=== PATIENT | female | born 1985 | race Caucasian/White ===

== ENCOUNTER → 2017-12-10 18:01 | Outpatient (REF) | payer OTHER, SELFPAY ==
[2017-12-13 06:05] LABS: Neisseria gonorrhoeae, NAA Negative (Negative)
== END ==
LOC: LAB 18:01
PROVIDERS: PCP Family Medicine; Visit Provider Nurse Practitioner Obstetrics & Gynecology
DX: Z72.51 High risk heterosexual behavior (principal)
CPT/HCPCS: 87491; 87591

== ENCOUNTER → 2019-04-28 10:37 | Outpatient (CLI) | payer BC, SELFPAY ==
--- NOTE | 2019-04-28 10:42 | XR_ITS ---
PROCEDURE: XR CHEST 2V CLINICAL HISTORY: BRONCHITIS Pneumonia, shortness of COMPARISON: No exams were available for comparison FINDINGS: The cardiomediastinal silhouette and pulmonary vascularity are within normal limits. The lungs are clear without infiltrates, suspicious nodules, or pleural effusions. Calcified granuloma is lobe. No acute bony abnormalities. IMPRESSION: No acute findings. Dictated by: Da Nguyen MD 04/28/2019 13:22 Electronically signed by Da Nguyen MD in [facility] 04/28/2019 13:22
== END ==
PROVIDERS: PCP Nurse Practitioner Family; Visit Provider Nurse Practitioner Family
DX: J40 Bronchitis, not specified as acute or chronic (principal)
CPT/HCPCS: 71046

== ENCOUNTER → 2020-10-11 16:23 | Outpatient (CLI) | payer BC, SELFPAY ==
--- NOTE | 2020-10-11 16:26 | MM_ITS ---
PROCEDURE: MM DIG SCREENING MAMM BI W/CAD Digital Breast Tomosynthesis Included CLINICAL INDICATION: Family Hx of Breast Cancer, Baseline Screening Rachel COMPARISON: No exams were available for comparison TECHNIQUE: Standard CC and MLO images and 3D Tomosynthesis was obtained. R2 CAD reviewed. FINDINGS: The breasts are extremely dense, decreases the sensitivity of mammography. There are multiple ill distinct nodular appearing densities noted in the breasts bilaterally, largest in right upper outer quadrant measuring up to 3 centimeters. No suspicious calcifications or architectural distortion. IMPRESSION: Nodular appearing densities in bilateral breasts. BI-RAD Category: 0 Need Additional Imaging Evaluation FOLLOW-UP: Ultrasound of both breasts. (A letter has been sent to the patient regarding results of the study.) Dictated by: Carrie Keenan 10/13/2020 08:51 Carrie Keenan in [facility] 10/13/2020 08:51
== END ==
PROVIDERS: PCP Family Medicine; Visit Provider Nurse Practitioner Obstetrics & Gynecology
DX: Z12.31 Encounter for screening mammogram for malignant neoplasm of breast (principal); Z80.3 Family history of malignant neoplasm of breast
CPT/HCPCS: 77063; 77067

== ENCOUNTER → 2020-10-25 15:08 | Outpatient (CLI) | payer BC, SELFPAY ==
--- NOTE | 2020-10-25 15:09 | US_ITS ---
PROCEDURE: US BREAST RT COMPLETE CLINICAL INDICATION: abnormal xmg Follow-up abnormal mammogram COMPARISON: MG MM DIG SCREENING MAMM BI W/CAD from 10/11/2020 FINDINGS: There are numerous complicated cyst. 1 cm complicated cyst at 12 o'clock 5 mm cyst at 1 o'clock near the nipple 9 x 8 x 3 mm cyst at 4 o'clock near the nipple Seven by 3 by 5 mm complicated cyst at 9 o'clock 5 mm x 3 mm cyst at 9 o'clock mid 6 x 5 mm complicated cyst 10 o'clock mid 6 mm complicated cyst at 10 o'clock outer 2.4 x 2.6 x 1.2 cm complicated cyst 10 o'clock outer. No solid suspicious nodules apparent. IMPRESSION: BI-RADS category 3 probably benign. Recommend six-month mammographic and sonographic follow-up to confirm baseline Dictated by: Da Nguyen MD 11/02/2020 08:12 Da Nguyen MD in [facility] 11/02/2020 08:12
--- NOTE | 2020-10-25 15:09 | US_ITS ---
PROCEDURE: US BREAST LT COMPLETE CLINICAL INDICATION: abnormal xmg COMPARISON: MG MM DIG SCREENING MAMM BI W/CAD from 10/11/2020 FINDINGS: There are numerous complicated cyst. 12 o'clock 7 x 6 mm complicated cyst. Outer. At 3 o'clock there is an 8 mm cyst, 7 mm complicated cyst, and 5 mm cyst outer aspect Nine by 7 mm complicated cyst 4 o'clock outer 10 x 7 mm cyst 5 o'clock near the nipple 3 mm cyst 9 o'clock near the nipple Six by 5 x 6 mm complicated cyst 10 o'clock near the nipple 7 x 4 mm complicated cyst at 10 o'clock mid 6 mm cyst 11 o'clock near the nipple 8 mm by 8 mm by 13 mm cyst 10 o'clock mid No malignant appearing mass IMPRESSION: Numerous benign-appearing and complicated cysts. Probably benign. BI-RADS category 3 probably benign Recommend six-month mammographic and sonographic follow-up to confirm baseline Dictated by: Da Nguyen MD 11/02/2020 08:15 Da Nguyen MD in [facility] 11/02/2020 08:15
== END ==
PROVIDERS: PCP Family Medicine; Visit Provider Nurse Practitioner Obstetrics & Gynecology
DX: R92.8 Other abnormal and inconclusive findings on diagnostic imaging of breast (principal)
CPT/HCPCS: 76641

== ENCOUNTER → 2022-03-31 16:45 | Outpatient (CLI) | payer BC, SELFPAY ==
--- NOTE | 2022-03-31 16:46 | MM_ITS ---
PROCEDURE INFORMATION: Exam: MG Bilateral Screening 3D Mammography Exam date and time: 03/31/2022 4:36 PM Age: 36 years old Clinical indication: Screening mammogram. TECHNIQUE: Imaging protocol: Bilateral Screening tomosynthesis and 2D mammography including computer-aided detection (CAD) when performed. COMPARISON: 1. MG MM DIG SCREENING MAMM BI W/CAD 10/11/2020 4:24 PM 2. US BREAST LT COMPLETE 10/25/2020 3:48 PM 3. US BREAST RT COMPLETE 10/25/2020 3:31 PM FINDINGS: MAMMOGRAPHY: Breast composition: The breast is heterogeneously dense, which may obscure small masses. Mass: None. Architectural distortion: No new or suspicious architectural distortion. Calcifications: No new or suspicious calcifications are present Asymmetric density: No new or suspicious asymmetric density is present Skin thickening: None. Axillary adenopathy: None. IMPRESSION: No mammographic evidence of malignancy. Recommend annual screening mammography unless otherwise clinically indicated. ASSESSMENT: BI-RADS category 1: Negative
== END ==
PROVIDERS: PCP Family Medicine; Visit Provider Nurse Practitioner Obstetrics & Gynecology
DX: Z12.31 Encounter for screening mammogram for malignant neoplasm of breast (principal)
CPT/HCPCS: 77063; 77067

== ENCOUNTER 2024-04-16 21:09 | Emergency (ER) | payer BC, SELFPAY ==
[2024-04-16] VITALS (9 sets, daily range): BP systolic 109–129; BP diastolic 53–84; PULSE 71–130; RESP 18; TEMP 37.2–37.6; O2SAT 95–100; BMI 25.7
--- NOTE | 2024-04-16 21:36 | ED_ITS ---
<Statement entered by Cyndi Arnett DO - 04/16/24 22:55> I was consulted by the SELINA, and we discussed the complexity of the problems being addressed. I approved the treatment and management plan for this patient's care in the emergency department, thus performing a substantive portion of the medical decision making. Cyndi Arnett DO Discharge Plan Disposition Chief Complaint: Upper Respiratory Infection Prescriptions Prescriptions: New azithromycin 250 mg tablet See Rx Instructions .ROUTE .COMPLEX Qty: 6 0RF Rx Instructions: For 250 mg dose pack: take 500 mg today (day 1), then 250 mg for 4 days (days 2-5) No Action levonorgestrel [Mirena] 20 mcg/24 hr (5 years) intrauterine device 1 insert INTRAUTERI ONCE Referrals Follow up/Referrals: Lokesh Álvarez MD [Primary Care Provider] - See instructions Activity Restrictions/Add. Instructions Additional Instructions/Restrictions: Please return to the emergency department any worsening signs or symptoms, any persistent fever, shortness of breath, chest pain that worsens or persist over the next 24 to 48 hours. Follow-up with primary care provider, continue all medications as currently prescribed, start azithromycin 500 mg first day, then 250 mg p.o. for next 4 days. Clinical Impressions Clinical Impression: Bronchitis, Pneumonia Instructions Patient Instructions: Pneumonia--Adult, DI for Acute Bronchitis Print Language Print Language: Wolof Discharge ED Provider: Cyndi Arnett General Adult HPI General Chief complaint: Upper Respiratory Infection Stated complaint: SOA, cough, franchesca Time Seen by Provider: 04/16/24 21:19 Mode of Arrival: Ambulatory Source of Information: Patient Limitations: No Limitations Description of Symptoms (Recalled from ER Triage Doc. by RN): Patient says she has been to doctor twice this week for same symptoms. Cough, headache, body aches, no energy and feels like she is having a harder time breathing than she normally does. Prescribed breathing treatments, ibuprofen 800, antibiotic and cough meds by outside provider. History of Present Illness HPI narrative: 38-year-old female presents to the emergency department for cough, myalgias, fatigue, headaches, congestion sore throat, shortness of breath, worse with deep inspiration since 04/12/2024, patient has been seen by urgent care provider as well as family physician, has been prescribed albuterol, promethazine, other antitussive, and has been on a cephalosporin antibiotic for the last couple of days, with little to no relief. Patient is also utilize [id number] cold and flu medications. Patient admits to subjective fever and chills, denies abdominal pain, nausea vomiting constipation diarrhea, denies any urinary type symptomatology, has no real relevant past medical history, is a current everyday smoker (vapes), denies alcohol or drug use. Initial triage vitals are unremarkable. Onset (ago): day(s) Related Data Home Medications ?Medication ?Instructions ?Recorded ?Confirmed levonorgestrel 21 mcg/24 hr (up to 1 insert intrauterine ONCE 12/10/17 01/01/24 8 years) 52 mg intrauterine device (Mirena) Previous Rx's ?Medication ?Instructions ?Recorded azithromycin 250 mg tablet See Rx Instructions PO .COMPLEX #6 04/16/24 tabs Allergies Allergy/AdvReac Type Severity Reaction Status Date / Time erythromycin base Allergy Mild Verified 01/01/24 15:50 [facility] Disclaimer: The information contained in this section may have been updated after the patient was seen, as this information can be updated by other users. Medical History (Updated 04/16/24 @ 22:48 by EMELI Adhikari) Anxiety Surgical History Hx of nasal septoplasty Family History Other Family history non-contributory Social History Smoking Status: Current every day smoker tobacco type: e-cigarettes alcohol intake: current alcohol intake frequency: holidays/special occasions only substance use type: denies use current occupational status: employed Travel in the last 8 weeks: None housing: house Other Medical History Have you received the Flu Vaccine for this season: No Have you received the Pneumonia Vaccine: No ROS Obtained: Yes All systems reviewed & no additional complaints except as documented Physical Exam General General appearance: alert and in no apparent distress Head Head exam: atraumatic and normocephalic Eye Eye exam: Present PERRL and EOMI ENT ENT exam: Present normal oropharynx, mucous membranes moist and other (Posterior oropharynx exam reveals no oropharyngeal edema, no tonsillar exudate or erythema, uvula is midline) Neck Neck exam: Present normal inspection Chest Chest inspection: Present normal inspection and symmetric chest wall rise Respiratory Respiratory exam: Present normal lung sounds bilaterally and other (Questionable minimal crackles in the left lung base otherwise lungs clear to auscultation bilaterally); Absent respiratory distress, stridor, accessory muscle use or prolonged expiratory phase Cardiovascular Cardiovascular exam: Present regular rate and normal rhythm Abdominal Exam Abdominal exam: Present soft; Absent tenderness Extremities Exam Extremities exam: Present normal inspection Neurological Exam Neurological exam: Present alert and oriented X3 Psychiatric Psychiatric exam: Present normal affect Skin Skin exam: Present warm and dry Medical Decision Making Medical Records Medical records reviewed: Yes I reviewed the patient's medical records. Screening: Per USPSTF and CDC recommendations, given the prevalence of disease in our region, it is our hospital?s policy to screen for HIV and viral Hepatitis for all patients aged 18 and over and those with ongoing risk factors. Tripp Inquiry Pt receiving controlled substance: No Tripp was queried for this patient: No Vital Signs: 04/16/24 21:10 04/16/24 21:24 04/16/24 21:30 Temperature 99.6 F Temperature Source Oral Pulse Rate 71 97 H Pulse Rate [Right Radial] 101 H Respiratory Rate 18 Blood Pressure 115/84 111/53 L Blood Pressure [Right Arm] 115/84 Blood Pressure Mean 94 Blood Pressure Mean [Right Arm] 94 Blood Pressure Source [Right Arm] Automatic Cuff Blood Pressure Position [Right Arm] Supine 02 Sat by Pulse Oximetry 98 97 95 Oxygen Delivery Method Room Air 04/16/24 21:45 04/16/24 22:01 04/16/24 22:16 Temperature Temperature Source Pulse Rate 101 H 98 H 104 H Pulse Rate [Right Radial] Respiratory Rate Blood Pressure 109/67 L 129/69 109/60 L Blood Pressure [Right Arm] Blood Pressure Mean Blood Pressure Mean [Right Arm] Blood Pressure Source [Right Arm] Blood Pressure Position [Right Arm] 02 Sat by Pulse Oximetry 97 98 100 Oxygen Delivery Method 04/16/24 22:33 Temperature Temperature Source Pulse Rate 130 H Pulse Rate [Right Radial] Respiratory Rate Blood Pressure 121/57 L Blood Pressure [Right Arm] Blood Pressure Mean Blood Pressure Mean [Right Arm] Blood Pressure Source [Right Arm] Blood Pressure Position [Right Arm] 02 Sat by Pulse Oximetry 98 Oxygen Delivery Method Lab Data Lab Results 04/16/24 21:48: SARS-CoV-2 (PCR) Not detected, Influenza A Untype (PCR) Not detected, Influenza Type B (PCR) Not detected Orders (Tests/Meds): ED MEDICATIONS Discontinued Medications Generic Name Dose Route Start Last Admin Trade Name John PRN Reason Stop Dose Admin Albuterol/Ipratropium 6 ml 04/16/24 21:42 Ipratropium/Albuterol 3 Ml Neb IH 04/16/24 21:43 ONCE ONE ORDERS Category Date Time Status CXR 2 view (NOT portable) [XR chest 2V] Stat Exams 04/16/24 21:42 Completed Rapid PCR Covid and Flu A/B Stat Lab 04/16/24 21:48 Completed Medical Decision Narrative: 38-year-old female presents emergency department for URI type symptomatology for the last 4 days, differential diagnose include but not limited to COVID-19, influenza A/B, acute bronchitis, viral pharyngitis, acute rhinosinusitis, pneumonia. I discussed patient case with attending physician Dr. Arnett I offered laboratory studies to the patient at the bedside, she denied at this time would like to pursue symptomatic relief, shared decision-making was utilized. Obtain rapid antigen swabs for COVID-19/influenza and, will obtain chest x-ray and give DuoNeb per RT 6 mL for shortness of air. Influenza A and influenza B are negative I reviewed the patient's chest x-ray along the corresponding radiologic report, there is a small left lower lobe pneumonia superimposed on airways disease or infectious bronchitis, trace left pleural effusion. Discussed this result with the patient and family the bedside, patient is feeling better after DuoNeb administration, SpO2 is remained 99-100% tachycardia currently at the bedside, is due to side effect from administration, patient states her shortness of breath is improved. Will treat patient prophylactically with atypical pneumonia, and add azithromycin 500 mg first day then 250 mg daily for for 5 days. Again, discussed strict ED return precautions follow-up PCP, offered laboratory studies she denied at this time would like to follow-up, so decision making conversation was utilized I think this is appropriate at this time, due to patient being afebrile in the emergency department, good oxygen saturation, and on previous antibiotic therapy and [id number] cold and flu medications. Patient feeling voiced understanding agreement current treatment plan/discharge plan. Critical Care Critical Care Time Critical Care Time: No
--- NOTE | 2024-04-16 21:42 | XR_ITS ---
PROCEDURE INFORMATION: Exam: XR Chest Exam date and time: 04/16/2024 9:41 PM Age: 38 years old Clinical indication: Cough; Additional info: SOA TECHNIQUE: Imaging protocol: Radiologic exam of the chest. Views: 2 views. COMPARISON: No relevant prior studies available. FINDINGS: Lungs: Peribronchial interstitial infiltrates are present bilaterally. There is airspace pattern infiltrate demonstrated left lower lobe posteriorly. Right midlung calcified granuloma. Pleural spaces: Small left pleural effusion is likely Heart/Mediastinum: Unremarkable. No cardiomegaly. Bones/joints: Osseous structures are appropriate for age. IMPRESSION: 1. Small left lower lobe pneumonia superimposed on airways disease or infectious bronchitis. 2. Trace left pleural effusion.
--- NOTE | 2024-04-16 21:49 | PC.NURSE ---
Resp notified of trx
[2024-04-16 21:52] LABS: Coronavirus 19, PCR Not Detected (NotDetected); Influenza A, PCR Not Detected (NotDetected); Influenza B, PCR Not Detected (NotDetected)
[2024-04-16] MEDS: IPRATROPIUM/ALBUTEROL 3 ML NEB 6 ML IH (22:10)
== END 2024-04-16 23:08 | disposition home or self-care (01) ==
PROVIDERS: Physician Assistant; Emergency Provider Emergency Medicine; PCP Family Medicine
DX: J18.9 Pneumonia, unspecified organism (principal); J40 Bronchitis, not specified as acute or chronic; R05.9 Cough, unspecified; M79.10 Myalgia, unspecified site; R53.83 Other fatigue; R51.9 Headache, unspecified; R09.81 Nasal congestion; J02.9 Acute pharyngitis, unspecified; R06.02 Shortness of breath; R50.9 Fever, unspecified; F17.290 Nicotine dependence, other tobacco product, uncomplicated
CPT/HCPCS: 71046; 87636; 99283; J7620